=== PATIENT | male | born 1965 | race Hispanic/Latino ===

== ENCOUNTER 2022-12-21 10:35 | Inpatient (IN) | payer OTHER, SELFPAY ==
[2022-12-21] MEDS ORDERED: Piperacillin/Tazobactam 4.5 GM VIAL ONE (12:56)
[2022-12-21] MEDS ORDERED: Vancomycin 1.5 GRAM/300 ML BAG 1.5 GM in Premix Bag 1 BAG IVPB SCH (13:00)
[2022-12-21 13:10] LABS: #Basophils 0.1 10x3/uL (0.0-0.2); #Eosinphils 0.1 10x3/uL (0.0-0.5); #Monocytes 1.1 10x3/uL (0.0-1.1); #Neutrophils 6.7 10x3/uL (1.5-8.4); %Basophils 0.8 % (0.0-2.0); %Eosinophils 1.2 % (0.0-6.0); %Lymphocytes 19.6 % (18.0-47.0); %Monocytes 11.2 % (0.0-10.0); %Neutrophils 66.7 % (40.0-75.0); Hemoglobin 11.4 g/dL (13.5-17.5); Mean Corpuscular HGB CONC 32.8 g/dL (32.0-36.0); Mean Corpuscular Hemoglobin 28.1 pg (27.0-33.0); Mean Corpuscular Volume 85.7 fl (81.2-95.1); Mean Platelet Volume 11.2 fl (7.4-10.4); Platelet Count 262 10x3/uL (150-450); RBC Distribution Width 12.3 % (11.5-14.5); Red Blood Cell (RBC) Count 4.06 10x6/uL (4.32-5.72)
[2022-12-21 13:13] LABS: Anion Gap 15 mmol/L (10-20); BUN (Urea Nitrogen) 27 mg/dL (8.4-25.7); Calc. Creatinine Clearance 0 mL/min (70-130); Carbon Dioxide 21 mmol/L (22-29); Chloride 108 mmol/L (98-107); Estimated GFR 77; Glucose 159 mg/dL (70-105); Potassium 4.9 mmol/L (3.5-5.1); Sodium 139 mmol/L (136-145)
[2022-12-21] MEDS ORDERED: HumaLOG 300 UNITS/3 ML VIAL SC PRN ×2 (17:36)
[2022-12-21] MEDS ORDERED: Dextrose 5% in Water 1,000 ML IV PRN (17:36)
[2022-12-21] MEDS ORDERED: Acetaminophen 325 MG TAB PO PRN (17:36)
[2022-12-21] MEDS ORDERED: Ondansetron ODT 4 MG TAB PO PRN (17:36)
[2022-12-21] MEDS ORDERED: Ondansetron PF 4 MG/2 ML Vial IVP PRN (17:36)
[2022-12-21] MEDS ORDERED: Dextrose 50% Abboject 50 ML SYRINGE SLOW IVP PRN (17:36)
[2022-12-21] MEDS ORDERED: Electrolyte Replacement Protocol FS PRN (17:45)
[2022-12-21] MEDS ORDERED: Lactated Ringer's 1,000 ML IV SCH (17:45)
[2022-12-21] MEDS: Cefepime 2 GM in Sodium Chloride 0.9% 100 ML IVPB SCH (21:28)
[2022-12-21] MEDS ORDERED: Vancomycin 1 GM in Premix Bag 1 BAG IVPB SCH (23:00)
[2022-12-22] MEDS: Vancomycin HCl 1 GM in Sodium Chloride 0.9% 250 ML 250 ML IVPB SCH ×3 (01:51→23:14)
[2022-12-22 04:28] LABS: #Basophils 0.1 10x3/uL (0.0-0.2); #Eosinphils 0.4 10x3/uL (0.0-0.5); #Monocytes 1.2 10x3/uL (0.0-1.1); #Neutrophils 5.1 10x3/uL (1.5-8.4); %Basophils 0.6 % (0.0-2.0); %Eosinophils 4.5 % (0.0-6.0); %Lymphocytes 27.1 % (18.0-47.0); %Monocytes 13.2 % (0.0-10.0); %Neutrophils 54.4 % (40.0-75.0); Hemoglobin 10.7 g/dL (13.5-17.5); Mean Corpuscular HGB CONC 32.9 g/dL (32.0-36.0); Mean Corpuscular Hemoglobin 27.9 pg (27.0-33.0); Mean Corpuscular Volume 84.9 fl (81.2-95.1); Mean Platelet Volume 10.6 fl (7.4-10.4); Platelet Count 268 10x3/uL (150-450); RBC Distribution Width 12.4 % (11.5-14.5); Red Blood Cell (RBC) Count 3.83 10x6/uL (4.32-5.72); White Blood Cell (WBC) Count 9.3 10x3/uL (3.5-10.5)
[2022-12-22 04:51] LABS: Albumin 3.6 g/dL (3.5-5.0); Anion Gap 15 mmol/L (10-20); BUN (Urea Nitrogen) 26 mg/dL (8.4-25.7); Bilirubin, Total 0.3 mg/dL (0.2-1.2); Calc. Creatinine Clearance 104 mL/min (70-130); Calcium 8.9 mg/dL (7.8-10.44); Carbon Dioxide 20 mmol/L (22-29); Chloride 111 mmol/L (98-107); Estimated GFR 91; Glucose 110 mg/dL (70-105); Potassium 4.6 mmol/L (3.5-5.1); Protein, Total 6.8 g/dL (6.0-8.3); Sodium 141 mmol/L (136-145)
[2022-12-22 04:52] LABS: ALT (SGPT) 30 U/L (8-55); AST (SGOT) 18 U/L (5-34); Alkaline Phosphatase 73 U/L (40-110); Cardiac Risk 3.5 (Less than 4.5); Cholesterol 113 mg/dl (< 200 Desired); Globulin 3.2 g/dL (2.4-3.5); HDL Cholesterol 32 mg/dL (>60 Neg Risk); Iron Binding Capacity, Total 246 mcg/dL (261-462); LDL Cholesterol, Calculated 55 mg/dL; Triglycerides 128 mg/dL (Less than 150)
[2022-12-22] MEDS: Aspirin 81 mg Enteric Coated Tablet PO SCH (08:39)
[2022-12-22] MEDS: Cefepime 2 GM in Sodium Chloride 0.9% 100 ML IVPB SCH ×2 (08:39→21:10)
[2022-12-22] MEDS: Amlodipine 10 MG TAB PO SCH (08:39)
[2022-12-22] MEDS ORDERED: Clopidogrel Bisulfate 75 MG TAB PO SCH (12:00)
[2022-12-22 12:17] LABS: Hemoglobin A1c 5.4 % (4.0-6.0)
[2022-12-22] MEDS ORDERED: Communication Order-Pharmacy FS SCH (12:45)
[2022-12-23 05:29] LABS: INR-International Normal Ratio 0.9; PTT 29.5 sec (22.0-33.0); Prothrombin Time 10.3 sec (9.5-12.1)
[2022-12-23 05:33] LABS: #Basophils 0.1 10x3/uL (0.0-0.2); #Eosinphils 0.5 10x3/uL (0.0-0.5); #Monocytes 1.3 10x3/uL (0.0-1.1); #Neutrophils 6.4 10x3/uL (1.5-8.4); %Basophils 0.6 % (0.0-2.0); %Eosinophils 4.8 % (0.0-6.0); %Lymphocytes 23.7 % (18.0-47.0); %Monocytes 11.9 % (0.0-10.0); %Neutrophils 58.7 % (40.0-75.0); Hemoglobin 10.6 g/dL (13.5-17.5); Mean Corpuscular HGB CONC 32.1 g/dL (32.0-36.0); Mean Corpuscular Hemoglobin 27.4 pg (27.0-33.0); Mean Corpuscular Volume 85.3 fl (81.2-95.1); Mean Platelet Volume 10.9 fl (7.4-10.4); Platelet Count 284 10x3/uL (150-450); RBC Distribution Width 12.4 % (11.5-14.5); Red Blood Cell (RBC) Count 3.87 10x6/uL (4.32-5.72); White Blood Cell (WBC) Count 10.9 10x3/uL (3.5-10.5)
[2022-12-23 05:37] LABS: ALT (SGPT) 25 U/L (8-55); AST (SGOT) 15 U/L (5-34); Albumin 3.5 g/dL (3.5-5.0); Alkaline Phosphatase 70 U/L (40-110); Anion Gap 14 mmol/L (10-20); BUN (Urea Nitrogen) 21 mg/dL (8.4-25.7); Bilirubin, Total 0.3 mg/dL (0.2-1.2); Calc. Creatinine Clearance 106 mL/min (70-130); Carbon Dioxide 23 mmol/L (22-29); Chloride 110 mmol/L (98-107); Cholesterol 112 mg/dl (< 200 Desired); Estimated GFR 93; Globulin 3.3 g/dL (2.4-3.5); Glucose 101 mg/dL (70-105); HDL Cholesterol 28 mg/dL (>60 Neg Risk); LDL Cholesterol, Calculated 58 mg/dL; Potassium 4.5 mmol/L (3.5-5.1); Protein, Total 6.8 g/dL (6.0-8.3); Sodium 142 mmol/L (136-145); Triglycerides 128 mg/dL (Less than 150)
[2022-12-23] MEDS ORDERED: Carvedilol 6.25 MG TAB PO SCH (08:45)
[2022-12-23] MEDS: Amlodipine 10 MG TAB PO SCH (10:02)
[2022-12-23] MEDS: Lisinopril 10 MG TAB PO SCH (10:03)
[2022-12-23] MEDS: Aspirin 81 mg Enteric Coated Tablet PO SCH (10:03)
[2022-12-23] MEDS: Clopidogrel Bisulfate 75 MG TAB PO SCH (10:03)
[2022-12-23] MEDS: Cefepime 2 GM in Sodium Chloride 0.9% 100 ML IVPB SCH ×2 (10:04→21:09)
[2022-12-23 10:47] LABS: Vancomycin, Trough 13.7 ug/mL
[2022-12-23] MEDS ORDERED: Vancomycin HCl 1 GM in Sodium Chloride 0.9% 250 ML 250 ML IVPB SCH (11:00)
[2022-12-23] MEDS: VANCOMYCIN 1.25 GM/250 ML BAG 1.25 GM in Premix Bag 1 BAG IVPB SCH (11:17)
[2022-12-23] MEDS ORDERED: Lidocaine 1% MPF 2 ML VIAL ONE (13:48)
[2022-12-23] MEDS ORDERED: Lidocaine 1% (PF) 30 ML VIAL ONE (13:49)
[2022-12-23] MEDS ORDERED: Nitroglycerin 50 MG/250 ML BOT 0 ML ONE (13:49)
[2022-12-23] MEDS ORDERED: Heparin 10,000 UNITS/ 10 ML VIAL ONE (13:49)
[2022-12-23] MEDS ORDERED: Sodium Chloride 0.9% 1,000 ML ONE (13:50)
[2022-12-23] MEDS ORDERED: Verapamil 5 MG/2 ML VIAL ONE (13:50)
[2022-12-23] MEDS ORDERED: Adenosine 6 MG/2 ML VIAL ONE (13:50)
[2022-12-23] MEDS ORDERED: Fentanyl 100 MCG/2 ML VIAL ONE (14:37)
[2022-12-23] MEDS ORDERED: Midazolam HCl 2 mg/2 ml Vial ONE (14:37)
[2022-12-23] MEDS ORDERED: Protamine Sulfate 50 MG/5 ML VIAL ONE (15:18)
[2022-12-23] MEDS ORDERED: Sodium Chloride 0.9% 200 ML IV PRN (15:24)
[2022-12-23] MEDS ORDERED: Nitroglycerin 0.4 MG TAB (25 Tab Bottle) SL PRN (15:24)
[2022-12-23] MEDS ORDERED: Acetaminophen/Codeine 30-300mg Tablet PO PRN ×2 (15:24)
[2022-12-23] MEDS ORDERED: Iopamidol 300 61% 100 ML VIAL FS ONE (15:51)
[2022-12-23] MEDS: Carvedilol 6.25 MG TAB PO SCH (16:26)
[2022-12-23] MEDS: Atorvastatin Calcium 40 MG TAB PO SCH (21:09)
[2022-12-24] MEDS: VANCOMYCIN 1.25 GM/250 ML BAG 1.25 GM in Premix Bag 1 BAG IVPB SCH ×3 (00:16→23:16)
[2022-12-24 05:25] LABS: #Basophils 0.1 10x3/uL (0.0-0.2); #Eosinphils 0.4 10x3/uL (0.0-0.5); #Monocytes 1.3 10x3/uL (0.0-1.1); #Neutrophils 5.9 10x3/uL (1.5-8.4); %Basophils 0.5 % (0.0-2.0); %Eosinophils 4.3 % (0.0-6.0); %Monocytes 12.4 % (0.0-10.0); %Neutrophils 57.5 % (40.0-75.0); Hemoglobin 9.8 g/dL (13.5-17.5); Mean Corpuscular HGB CONC 32.2 g/dL (32.0-36.0); Mean Corpuscular Hemoglobin 27.6 pg (27.0-33.0); Mean Corpuscular Volume 85.6 fl (81.2-95.1); Mean Platelet Volume 10.8 fl (7.4-10.4); Platelet Count 283 10x3/uL (150-450); RBC Distribution Width 12.1 % (11.5-14.5); Red Blood Cell (RBC) Count 3.55 10x6/uL (4.32-5.72); White Blood Cell (WBC) Count 10.2 10x3/uL (3.5-10.5)
[2022-12-24 05:30] LABS: ALT (SGPT) 23 U/L (8-55); AST (SGOT) 20 U/L (5-34); Albumin 3.4 g/dL (3.5-5.0); Alkaline Phosphatase 76 U/L (40-110); Anion Gap 15 mmol/L (10-20); BUN (Urea Nitrogen) 24 mg/dL (8.4-25.7); Bilirubin, Total 0.2 mg/dL (0.2-1.2); Calc. Creatinine Clearance 96 mL/min (70-130); Calcium 8.8 mg/dL (7.8-10.44); Carbon Dioxide 20 mmol/L (22-29); Chloride 112 mmol/L (98-107); Estimated GFR 83; Globulin 3.2 g/dL (2.4-3.5); Glucose 120 mg/dL (70-105); Potassium 4.6 mmol/L (3.5-5.1); Protein, Total 6.6 g/dL (6.0-8.3); Sodium 142 mmol/L (136-145)
[2022-12-24] MEDS ORDERED: Cefepime 2 GM VIAL ONE (07:57)
[2022-12-24] MEDS: Cefepime 2 GM in Sodium Chloride 0.9% 100 ML IVPB SCH ×2 (08:45→21:08)
[2022-12-24] MEDS: Carvedilol 6.25 MG TAB PO SCH ×2 (08:46→16:50)
[2022-12-24] MEDS: Clopidogrel Bisulfate 75 MG TAB PO SCH (08:46)
[2022-12-24] MEDS: Lisinopril 10 MG TAB PO SCH (08:46)
[2022-12-24] MEDS: Aspirin 81 mg Enteric Coated Tablet PO SCH (08:47)
[2022-12-24] MEDS: Amlodipine 10 MG TAB PO SCH (08:47)
[2022-12-24] MEDS: metroNIDAZOLE 500 MG TAB PO SCH (21:08)
[2022-12-24] MEDS: Atorvastatin Calcium 40 MG TAB PO SCH (21:08)
[2022-12-24 23:11] LABS: Vancomycin, Trough 23.8 ug/mL
[2022-12-25 00:24] LABS: SARS-CoV-2 NAA Rapid Test Not Detected (NotDetected)
[2022-12-25 06:01] LABS: #Basophils 0.1 10x3/uL (0.0-0.2); #Eosinphils 0.5 10x3/uL (0.0-0.5); #Monocytes 1.3 10x3/uL (0.0-1.1); #Neutrophils 6.3 10x3/uL (1.5-8.4); %Basophils 0.5 % (0.0-2.0); %Eosinophils 4.2 % (0.0-6.0); %Lymphocytes 24.8 % (18.0-47.0); %Monocytes 12.1 % (0.0-10.0); Hemoglobin 9.9 g/dL (13.5-17.5); Mean Corpuscular Hemoglobin 27.7 pg (27.0-33.0); Mean Corpuscular Volume 86.6 fl (81.2-95.1); Mean Platelet Volume 11.1 fl (7.4-10.4); Platelet Count 284 10x3/uL (150-450); RBC Distribution Width 12.2 % (11.5-14.5); Red Blood Cell (RBC) Count 3.57 10x6/uL (4.32-5.72); White Blood Cell (WBC) Count 10.8 10x3/uL (3.5-10.5)
[2022-12-25 06:09] LABS: ALT (SGPT) 19 U/L (8-55); AST (SGOT) 18 U/L (5-34); Albumin 3.4 g/dL (3.5-5.0); Alkaline Phosphatase 71 U/L (40-110); Anion Gap 15 mmol/L (10-20); BUN (Urea Nitrogen) 25 mg/dL (8.4-25.7); Bilirubin, Total 0.2 mg/dL (0.2-1.2); Calc. Creatinine Clearance 93 mL/min (70-130); Calcium 8.7 mg/dL (7.8-10.44); Carbon Dioxide 17 mmol/L (22-29); Chloride 113 mmol/L (98-107); Estimated GFR 80; Globulin 3.2 g/dL (2.4-3.5); Glucose 145 mg/dL (70-105); Potassium 4.2 mmol/L (3.5-5.1); Protein, Total 6.6 g/dL (6.0-8.3); Sodium 141 mmol/L (136-145)
[2022-12-25] MEDS: metroNIDAZOLE 500 MG TAB PO SCH ×3 (08:30→22:13)
[2022-12-25] MEDS: Amlodipine 10 MG TAB PO SCH (08:30)
[2022-12-25] MEDS: Lisinopril 10 MG TAB PO SCH (08:30)
[2022-12-25] MEDS: Carvedilol 6.25 MG TAB PO SCH ×2 (08:33→17:10)
[2022-12-25] MEDS: Clopidogrel Bisulfate 75 MG TAB PO SCH (08:33)
[2022-12-25] MEDS: Aspirin 81 mg Enteric Coated Tablet PO SCH (08:33)
[2022-12-25] MEDS: Cefepime 2 GM in Sodium Chloride 0.9% 100 ML IVPB SCH ×2 (10:02→22:13)
[2022-12-25] MEDS ORDERED: Vancomycin HCl 1 GM in Sodium Chloride 0.9% 250 ML 250 ML IVPB SCH (17:00)
[2022-12-25] MEDS: Vancomycin HCl 750 MG in Sodium Chloride 0.9% 250 ML 250 ML IVPB SCH (17:32)
[2022-12-25] MEDS ORDERED: Bupivacaine PF 0.5% 30 ML VIAL ONE (18:54)
[2022-12-25] MEDS ORDERED: Lidocaine 2% PF 5 ML VIAL ONE (19:03)
[2022-12-25] MEDS ORDERED: PROPOFOL 20 ML ONE (19:03)
[2022-12-25] MEDS ORDERED: ePHEDrine Sulfate 50 MG/10 ML VIAL ONE ×2 (19:14→19:17)
[2022-12-25] MEDS ORDERED: Neomycin-Polymyxin 1 ML AMP ONE (19:20)
[2022-12-25] MEDS: Atorvastatin Calcium 40 MG TAB PO SCH (22:13)
[2022-12-26 03:49] LABS: #Eosinphils 0.4 10x3/uL (0.0-0.5); %Basophils 0.4 % (0.0-2.0); %Eosinophils 4.3 % (0.0-6.0); %Lymphocytes 29.6 % (18.0-47.0); %Monocytes 10.4 % (0.0-10.0); %Neutrophils 54.8 % (40.0-75.0); Mean Corpuscular HGB CONC 32.1 g/dL (32.0-36.0); Mean Corpuscular Volume 84.1 fl (81.2-95.1); Mean Platelet Volume 10.6 fl (7.4-10.4); Platelet Count 298 10x3/uL (150-450); Red Blood Cell (RBC) Count 3.71 10x6/uL (4.32-5.72); White Blood Cell (WBC) Count 9.2 10x3/uL (3.5-10.5)
[2022-12-26 04:03] LABS: ALT (SGPT) 22 U/L (8-55); AST (SGOT) 14 U/L (5-34); Albumin 3.4 g/dL (3.5-5.0); Alkaline Phosphatase 70 U/L (40-110); Anion Gap 14 mmol/L (10-20); BUN (Urea Nitrogen) 19 mg/dL (8.4-25.7); Bilirubin, Total 0.3 mg/dL (0.2-1.2); Calc. Creatinine Clearance 124 mL/min (70-130); Carbon Dioxide 20 mmol/L (22-29); Chloride 110 mmol/L (98-107); Estimated GFR 103; Globulin 3.2 g/dL (2.4-3.5); Glucose 93 mg/dL (70-105); Potassium 3.9 mmol/L (3.5-5.1); Protein, Total 6.6 g/dL (6.0-8.3); Sodium 140 mmol/L (136-145)
[2022-12-26] MEDS: Vancomycin HCl 750 MG in Sodium Chloride 0.9% 250 ML 250 ML IVPB SCH ×2 (04:17→17:17)
[2022-12-26] MEDS: Cefepime 2 GM in Sodium Chloride 0.9% 100 ML IVPB SCH (08:08)
[2022-12-26] MEDS: Clopidogrel Bisulfate 75 MG TAB PO SCH (08:18)
[2022-12-26] MEDS: Carvedilol 6.25 MG TAB PO SCH ×2 (08:18→15:59)
[2022-12-26] MEDS: Lisinopril 10 MG TAB PO SCH (08:19)
[2022-12-26] MEDS: Amlodipine 10 MG TAB PO SCH (08:22)
[2022-12-26] MEDS: Aspirin 81 mg Enteric Coated Tablet PO SCH (08:22)
[2022-12-26] MEDS: metroNIDAZOLE 500 MG TAB PO SCH ×2 (08:34→16:18)
[2022-12-26 14:15] VITALS: TEMP 98.4
[2022-12-26 18:27] VITALS: BP 123/69
== END 2022-12-26 18:15 | disposition home or self-care (01) | DRG 253 ==
LOC: CSHERS 10:35 → CSHTELE 15:43 → OBSVTOIN 12-24 16:48
PROVIDERS: ADMIT Internal Medicine; ATTEND Internal Medicine
PROC: 047P3ZZ Dilation of Right Anterior Tibial Artery, Percutaneous Approach (ICD-10-PCS; principal; 2022-12-23)
PROC: B4101ZZ Fluoroscopy of Abdominal Aorta using Low Osmolar Contrast (ICD-10-PCS; 2022-12-23)
PROC: B41F1ZZ Fluoroscopy of Right Lower Extremity Arteries using Low Osmolar Contrast (ICD-10-PCS; 2022-12-23)
PROC: 0Y6T0Z1 Detachment at Right 3rd Toe, High, Open Approach (ICD-10-PCS; 2022-12-25)
DX: E11.52 Type 2 diabetes mellitus with diabetic peripheral angiopathy with gangrene (principal); M86.8X8 Other osteomyelitis, other site; E11.69 Type 2 diabetes mellitus with other specified complication; I10 Essential (primary) hypertension; E11.42 Type 2 diabetes mellitus with diabetic polyneuropathy; Z20.822 Contact with and (suspected) exposure to COVID-19; Z79.82 Long term (current) use of aspirin; Z98.890 Other specified postprocedural states
CPT/HCPCS: 36245; 36415; 36416; 37228; 75625; 75710; 75774; 80048; 80053; 80061; 80202; 82728; 83036; 83550; 83605; 85025; 85347; 85610; 85652; 85730; 86140; 87040; 87070; 87077; 87081; 87186; 87205; 88305; 88311; 93005; 93010; 93923; 94760; 96365; 96366; 96367; 96372; 96375; 96376; 97139; 99152; 99153; C1725; C1760; C1769; C1887; C1894; G0378; J0153; J0692; J1644; J1650; J2001; J2250; J2543; J2704; J2720; J3010; J3370; J3490; J7050; J7120; Q9967; S0020; U0002